=== PATIENT | female | born 1945 | race Two or more races ===

== ENCOUNTER 2025-03-19 10:48 | Emergency (ER) | payer OTHER, MEDICAID ==
[~2025-03-19] VITALS: Ht 154.9 cm; Wt 73.1 kg
[2025-03-19 11:37] LABS: Hematocrit 39.3 % (36.0-46.0); Hemoglobin 13.4 g/dL (12.2-16.2); Mean Corpuscular Hemoglobin 28.9 pg (28.0-32.0); Mean Corpuscular Volume 84.9 fL (80.0-100.0); Nucleated Red Blood Cells % 0.0 %
--- NOTE | 2025-03-19 11:47 | ED.PDOC ---
GI ASSESSMENT HPI Comments HPI: 79 y/o F, with PMHx of COPD, CAD, HLD, HTN presents to the ED for CC of GI Bleed. Patient states, she has been experiencing symptoms of suprapubic abdominal pain with associated melena stools x4days. Patient reports, to have tried over the counter medications for upset stomach x2days prior to tarry stools and symptoms did not resolve. Patient denies active bleeding, dizziness, nausea, vomiting, or faintness. No other symptoms or modifying factors are present at this time. Past Medical History: COPD, CAD, HLD, HTN Past Surgical History: STENT X3, X2, R & L KNEE REPLACEMENT Social History: Denies ETOH, smoking, and drug use. Medications: LOSARTAN, HYDROCHLOROTHIAZIDE Allergies: BREZTRI, PENICILLINS, TRAMADOL REVIEW OF SYSTEMS: CONSTITUTIONAL: Denies acute: fever, diaphoresis, chills, generalized weakness. HEAD: Denies acute: headache, photophobia Eyes: Denies acute: Double vision, vision loss, eye pain, eye discharge. EARS: Denies acute: tinnitus, hearing loss, ear discharge, ear pain, THROAT: Denies acute: sore throat, swelling, difficulty swallowing , pain with swallowing, change in voice. NECK: Denies acute: neck pain, neck swelling, stiff neck. HEART: Denies acute : chest pain, palpitations, LUNGS: Denies acute: SOB, wheezing, cough, hemoptysis ABDOMEN: Denies acute: Nausea, Vomiting, diarrhea, , hematemesis, hematochezia SKIN: Denies acute: rash, redness, lesions, itchiness. EXTREMITIES: Denies acute: calf pain, numbness, tingling, weakness, denies pain in extremity. Denies acute: Low back pain. Neuro: Denies acute: focal neurological deficit, motor or sensory focal neurological deficit, tremors, seizure like activity, confusion, dizziness, change in mental status, loss of bowel or bladder function, cauda equina like symptoms. : Denies acute: dysuria, hematuria, flank pain, increase in urinary frequency. PSYCH: Denies acute: hallucination, suicidal ideation, homicidal ideation. FEMALE: Denies acute: abnormal vaginal bleeding, foul odor, unusual discharge. PHYSICAL EXAM: General: ----mild----acute distress, awake and alert. Head: normocephalic, atraumatic. Neck: supple, trachea is midline, no swelling. Throat: Normal phonation. Eyes:, no erythema, no purulent discharge, no proptosis, no icterus. Heart: regular rate, regular rhythm, no significant murmur appreciated. Lungs: no apparent respiratory distress, Able to speak in full sentences. No wheezing, no rhonchi, no crackles. No stridors Clear to auscultation bilaterally. Abdomen: Lower abdominal tender to palpation, non distended, soft, no guarding, no rebound, + bowel sounds. Neuro: Awake, Alert, oriented to name, self, situation, follows commands GCS=15. Speech is normal. Skin: no petechia, no purpura, no cyanosis, non-pale, not jaundice. Lower extremities: --no - Pitting edema no deformity, no focal swelling, no calf TTP. Makes eye contact. moves all four extremities. Face: no apparent facial droop. Ambulating in the ED independently. ED COURSE: DISCLAIMER: This medical document was created using an electronic medical record system with voice recognition software and computerized dictation system. Although this document has been carefully reviewed, there might still be some phonetic and typographical errors. Occasional wrong-word or "sound-alike" substitutions may have occurred due to the inherent limitations of voice recognition software. These areas are purely typographical due to imperfections of the software programs and do not reflect any compromise in the patient's medical care. Please read the chart carefully and recognize, using context, where these substitutions have occurred. Chief Complaint: GI Bleed Time Seen by MD: 11:45 Reviewed Notes: Nurses Notes, Medications, Allergies Allergies: Coded Allergies: Penicillins (Verified Allergy, Unknown, 03/19/25) Tramadol (Verified Allergy, Unknown, 03/19/25) Uncoded Allergies: BREZTRI (Allergy, Unknown, 03/19/25) Information Source: Patient Mode of Arrival: Ambulatory Timing: Days Duration: Since onset Prehospital treatment: None Quality: None Vomitus: None Stool: Black Severity: Moderate Recent: None Recent Hx of: Diabetes Pain Location: Suprapubic Modifying Factors: Nothing Associated sign and symptoms: Abdominal Pain Was a procedure done? Was a procedure done?: No GI differential Dx Differential Diagnosis: Cholangitis, Diverticular disease, GI hemorrhage, Inflammatory BD, Other (DDX include Diverticulitis, colitis, gastroenteritis, acute abdomen, SBO, enteritis, constipation, volvulus, appendicitis, Gallbladder disease, choledocolithiasis, ascending cholangitis, pancreatitis, intraAbdominal mass/neoplasm, hepatitis, UTI, pylonephritis, kidney stone, aneurysm, dissection, Inflammatory bowel disease, gastroparesis, ischemic bowel,,,,,,ovarian torsion, ovarian cyst/mass, ) Other Differential Diagnosis As far as rectal bleed: Diverticulitis, colitis, fistula, neoplasm, hemorrhoids, anal fissures, constipation, Crohn's disease, ulcerative colitis X-Ray, Labs, Meds, VS Vital Signs Date Time Temp Pulse Resp B/P (MAP) Pulse Ox O2 Delivery O2 Flow Rate FiO2 03/19/25 19:27 98.3 72 18 149/85 (106) 94 98.3 03/19/25 19:15 75 17 98 Room Air* 0 21 03/19/25 12:24 97 Room Air* 0 21 03/19/25 12:15 97.7 74 17 126/75 (92) 94 97.7 03/19/25 11:01 73 03/19/25 10:49 97.8 77 20 135/75 96 97.8 Lab Test 03/19/25 15:35 03/19/25 11:12 Range/Units Urine Color Light-yellow Yellow Urine Clarity Clear Clear Urine pH 6.5 5.0-9.0 Urine Specific [place] 1.010 1.001-1.035 Urine Protein Negative Negative Urine Ketones Negative Negative Urine Blood Trace H Negative /uL Urine Nitrite Negative Negative Urine Bilirubin Negative Negative Urine Urobilinogen Normal Negative mg/dL Urine Leukocyte Esterase Trace Negative /uL Urine RBC 2 0 - 4 /hpf Urine Microscopic WBC 1 0-5 /HPF Urine Squamous Epithelial Cells Few <5 /hpf Urine Bacteria None seen None Seen /hpf Urine Glucose Normal Normal mg/dL White Blood Count 6.5 4.4-10.8 10^3/uL Red Blood Count 4.63 4.0-5.20 10^6/uL Hemoglobin 13.4 12.2-16.2 g/dL Hematocrit 39.3 36.0-46.0 % Mean Corpuscular Volume 84.9 80.0-100.0 fL Mean Corpuscular Hemoglobin 28.9 28.0-32.0 pg Mean Corpuscular Hemoglobin Concent 34.0 32.0-36.0 g/dL Red Cell Distribution Width 13.8 11.8-14.3 % Platelet Count 227 140-450 10^3/uL Mean Platelet Volume 9.1 6.9-10.8 fL Neutrophils (%) (Auto) 76.1 37.0-80.0 % Lymphocytes (%) (Auto) 15.0 10.0-50.0 % Monocytes (%) (Auto) 6.3 0.0-12.0 % Eosinophils (%) (Auto) 1.7 0.0-7.0 % Basophils (%) (Auto) 0.9 0.0-2.0 % Neutrophils # (Auto) 4.9 1.6-8.6 10 ^3/uL Lymphocytes # (Auto) 1.0 0.4-5.4 10 ^3/uL Monocytes # (Auto) 0.4 0-1.3 10 ^3/uL Eosinophils # (Auto) 0.1 0-0.8 10 ^3/uL Basophils # (Auto) 0.1 0-0.2 10 ^3/uL Nucleated Red Blood Cells 0.0 % Prothrombin Time 10.4 9.3-11.8 sec Prothrombin Time INR 0.98 0.9-1.15 Activated Partial Thromboplast Time 27.6 24.5-34.5 SEC Sodium Level 140 136-145 mmol/L Potassium Level 3.0 L 3.5-5.1 mmol/L Chloride Level 102 98-107 mmol/L Carbon Dioxide Level 27 20-31 mmol/L Anion Gap 11 5-15 Blood Urea Nitrogen 6 L 9-23 mg/dL Creatinine 0.76 0.550-1.02 mg/dL Glomerular Filtration Rate Calc 81 >90 mL/min BUN/Creatinine Ratio 7.9 L 10.0-20.0 Serum Glucose 113 H 74-106 mg/dL Lactic Acid Level 1.5 0.4-2.0 mmol/L Calcium Level 9.2 8.7-10.4 mg/dL Total Bilirubin 0.6 0.2-1.0 mg/dL Aspartate Amino Transferase (AST) 25 13-40 U/L Alanine Aminotransferase (ALT) 21 7-40 U/L Alkaline Phosphatase 109 46-116 U/L Total Protein 7.0 5.7-8.2 g/dL Albumin 4.5 3.2-4.8 g/dL Lipase 33 12-53 U/L Current Medications Medications (Trade) Dose Ordered Sig/Festsu Route Start Time Stop Time Status Last Admin Sodium Chloride 1,000 ml @ 1,000 mls/hr Q1H ONCE IV 03/19/25 11:00 03/19/25 11:59 DC 03/19/25 12:21 Pantoprazole Sodium (Protonix) 40 mg ONCE ONCE IV 03/19/25 12:00 03/19/25 12:12 DC 03/19/25 12:21 Ciprofloxacin 200 ml @ 200 mls/hr ONCE ONCE IV 03/19/25 13:15 03/19/25 14:14 DC 03/19/25 13:33 Metronidazole 100 ml @ 100 mls/hr ONCE ONCE IV 03/19/25 13:15 03/19/25 14:14 DC 03/19/25 13:33 Potassium Bicarbonate (Klor-Con/Ef) 50 meq ONCE ONCE GT 03/19/25 18:15 03/19/25 18:16 DC 03/19/25 18:13 [place] [id number] Ph: [phone] DIAGNOSTIC IMAGING Diagnostic Imaging Report : [id number] Signed PATIENT: TRACY IRENE ACCT: [id number] UNIT: [id number] : 1945 LOC: ER ROOM / BED: / AGE / SEX: 79 / F ADM STATUS: REG ER SERVICE 1059 ORDERING PHYSICIAN: FARHANA DENSON DO PROCEDURE(s): ABPL - CT AB PEL WO CON-NO ORAL OR IV REASON: rectal bleed ORDER NUMBER(s): [id number], ACCESSION NUMBER(s): [id number] Indication: rectal bleed Technique: CT axial images of the abdomen and pelvis are obtained without contrast. Coronal and sagittal reformats were obtained. Comparison: CT ABD PELVIS WO CONTRAST on DOS: 08/23/20 FINDINGS: There is limited interpretation of the abdomen and pelvis without administration of intravenous contrast. Lung bases demonstrate no pleural effusion. Adrenal glands unremarkable in shape. Splenic calcification consistent with remote granulomatous disease. Pancreas unremarkable in shape. Hepatic steat osis. No CT evidence for cholelithiasis No hydronephrosis /nephrolithiasis. Stomach is partially distended. Radiopaque density in the proximal stomach biopsy clip measuring 1.8 cm. Small bowel loops are normal in caliber. Colonic diverticular disease. Bowel wall thickening of the transverse and ascending colon with mild surrounding stranding. Normal appendix. Abdominal aortic atherosclerotic disease. Bladder nondistended. No free pelvic fluid. No inguinal lymphadenopathy. Dfdm-tf-luxyayuf bilateral sacroiliac degenerative joint disease. Cusv-bv-jrdyzwao thoracolumbar degenerative disc disease. IMPRESSION: Limited evaluation without contrast. Bowel wall thickening of the transverse and ascending colon which can be secondary to colitis, inflammatory bowel disease. Radiopaque density/biopsy clip in the proximal stomach measuring 1.8 cm. Correlate clinically. Colonic diverticular disease. Hepatic steatosis. Other findings as described. ATED BY: NOELLE CLAYTON MD DICTATED DATE/TIME: 03/19/25 120 SIGNED BY: NOELLE CLAYTON MD SIGNED DATE/TIME: 03/19/25 120 CC: Time of 1ST Reevaluation: 12:15 Reevaluation 1ST: Unchanged Patient Education/Counseling: Diagnosis, Treatment Family Education/Counseling: Other Comments MDM: patient presented with the above HPI.--abdominal pain/melena- -workup was initiated. patient was found with the above mentioned diagnosis. the following medications were ordered: please refer to order lists of meds and tests obtained by myself Dr. Denson. Patient ED course and VS have been stabilized. Patient has been reassessed in the ED and remained in a stable condition. Pertinent incidental findings were discussed with the patient and/or family. Patient/family voices understanding and is agreeable with plan. Patient has been observed in the ED adequate length of time to insure improve ment/stability. Escalation of care considered: Consideration of escalation to observation or admission CT scan suggested possible colitis. Antibiotics initiated. Patient was given Protonix for GI bleed. Patient was given potassium replacement and fluids. Patient was ADMITTED to the medicine team for further evaluation and treatment of their presentation. All the reports of any imaging studies that were ordered by myself were reviewed by myself. 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 ) Ct Ab Pel Wo Con-No Oral Or Iv (03/19/25 10:59) Electrocardigram (03/19/25 10:59) Cardiac Diet-2gna,Lofat,Lochol (03/19/25 Dinner) Vital Signs Date Time Temp Pulse Resp B/P (MAP) Pulse Ox O2 Delivery O2 Flow Rate FiO2 03/19/25 19:27 98.3 72 18 149/85 (106) 94 98.3 03/19/25 19:15 75 17 98 Room Air* 0 21 03/19/25 12:24 97 Room Air* 0 21 03/19/25 12:15 97.7 74 17 126/75 (92) 94 97.7 03/19/25 11:01 73 03/19/25 10:49 97.8 77 20 135/75 96 97.8 Laboratory Tests Test 03/19/25 11:12 Lactic Acid Level 1.5 mmol/L (0.4-2.0) White Blood Count 6.5 10^3/uL (4.4-10.8) Departure 1 Departure Time of Disposition: 11:51 Impression: Primary Impression: Melena Additional Impressions: Abdominal pain Colitis Disposition: ADMITTED INPATIENT Admit to: Tele Condition: Guarded Discharged With: Self Critical Care Note Critical Care Time?: Yes (45 min-critical care time only) I personally scribed for FARHANA DENSON DO ([email or web address]) on 03/19/25 at 11:47. Electronically submitted by Claribel Ortega ([email or web address]). I personally scribed for FARHANA DENSON DO ([email or web address]) on 03/19/25 at 12:18. Electronically submitted by Claribel Ortega ([email or web address]). I personally scribed for FARHANA DENSON DO ([email or web address]) on 03/19/25 at 12:51. Electronically submitted by Claribel Ortega ([email or web address]). I personally scribed for FARHANA DENSON DO ([email or web address]) on 03/19/25 at 12:57. Electronically submitted by Claribel Ortega ([email or web address]). FARHANA DENSON DO Mar 19, 2025 11:47
[2025-03-19 11:52] LABS: INR 0.98 (0.9-1.15); Partial Thromboplastin Time 27.6 SEC (24.5-34.5); Prothrombin Time 10.4 sec (9.3-11.8)
[2025-03-19 11:54] LABS: Alanine Aminotransferase 21 U/L (7-40); Albumin 4.5 g/dL (3.2-4.8); Alkaline Phosphatase 109 U/L (46-116); Anion Gap 11 (5-15); BUN/Creatinine Ratio 7.9 (10.0-20.0); Blood Urea Nitrogen 6 mg/dL (9-23); Calcium 9.2 mg/dL (8.7-10.4); Carbon Dioxide 27 mmol/L (20-31); Chloride 102 mmol/L (98-107); Glucose 113 mg/dL (74-106); Lipase 33 U/L (12-53); Potassium 3.0 mmol/L (3.5-5.1); Sodium 140 mmol/L (136-145); Total Protein 7.0 g/dL (5.7-8.2)
[2025-03-19 11:55] LABS: Bilirubin, Total 0.6 mg/dL (0.2-1.0)
--- NOTE | 2025-03-19 12:00 | DVH ---
Indication: rectal bleed Technique: CT axial images of the abdomen and pelvis are obtained without contrast. Coronal and sagit suzanne reformats were obtained. Comparison: CT ABD PELVIS WO CONTRAST on DOS: 08/23/20 FINDINGS: There is limited interpretation of the abdomen and pelvis without administration of intravenous contr ast. Lung bases demonstrate no pleural effusion. Adrenal glands unremarkable in shape. Splenic calcification consistent with remote granulomatous dis ease. Pancreas unremarkable in shape. Hepatic steatosis. No CT evidence for cholelithiasis No hydronephrosis /nephrolithiasis. Stomach is partially distended. Radiopaque density in the proximal stomach biopsy clip measuring 1.8 cm. Small bowel loops are normal in caliber. Colonic diverticular disease. Bowel wall thickening of the transverse and ascending colon with mild s urrounding stranding. Normal appendix. Abdominal aortic atherosclerotic disease. Bladder nondistended. No free pelvic fluid. No inguinal lym phadenopathy. Kyux-ok-leeccleu bilateral sacroiliac degenerative joint disease. Emrb-xa-lwuwieab thoracolumbar dege nerative disc disease. IMPRESSION: Limited evaluation without contrast. Bowel wall thickening of the transverse and ascending colon which can be secondary to colitis, inflam matory bowel disease. Radiopaque density/biopsy clip in the proximal stomach measuring 1.8 cm. Correlate clinically. Colonic diverticular disease. Hepatic steatosis. Other findings as described.
[2025-03-19] MEDS: SODIUM CHLORIDE 0.9% 1,000 ML IV ONE (12:21)
[2025-03-19] MEDS: PANTOPRAZOLE 40 MG/10 ML VIAL INJ IV ONE (12:21)
[2025-03-19] MEDS: CIPROFLOXACIN 400MG/200ML 200 ML IV ONE (13:33)
--- NOTE | 2025-03-19 15:32 | ECG ---
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
[2025-03-19 15:56] LABS: Urine Protein, UAD Negative (Negative)
[2025-03-19] MEDS: POTASSIUM EFFERVESENT TAB 25 MEQ GT ONE (18:13)
[2025-03-19 19:15] VITALS: PULSE 75; RESP 17; O2SAT 98
[2025-03-19 19:27] VITALS: BP 149/85; PULSE 72; RESP 18; TEMP 98.3; O2SAT 94
== END 2025-03-19 20:22 | disposition left against medical advice (07) ==
LOC: ER 10:48
DX: K92.1 Melena (principal); K52.9 Noninfective gastroenteritis and colitis, unspecified; I10 Essential (primary) hypertension; E78.5 Hyperlipidemia, unspecified; I25.10 Atherosclerotic heart disease of native coronary artery without angina pectoris; J44.9 Chronic obstructive pulmonary disease, unspecified; Z88.0 Allergy status to penicillin; Z88.5 Allergy status to narcotic agent
CPT/HCPCS: 36415; 74176; 80053; 81001; 83605; 83690; 85025; 85610; 85730; 86850; 86900; 86901; 93005; 96361; 96365; 96367; 96375; 99285; J0744; J2470; J3490; J7030